=== PATIENT | female | born 1955 | race Native Hawaiian/Other Pacific Islander ===

== ENCOUNTER 2025-04-16 20:06 | Emergency (ER) | payer MEDICARE, OTHER ==
[2025-04-16] MEDS ORDERED: Dexamethasone 10 MG/ML VIAL ONE (22:41)
[2025-04-16 23:08] LABS: #Basophils 0.09 10x3/uL (0.0-0.2); #Eosinophils 1.51 10x3/uL (0.0-0.7); #Monocytes 0.54 10x3/uL (0.11-0.59); #Neutrophils 6.06 10x3/uL (1.40-6.50); %Basophils 0.9 % (0.0-1.0); %Eosinophils 14.8 % (0.0-10.0); %Lymphocytes 19.2 % (21.0-51.0); %Monocytes 5.3 % (0.0-10.0); %Neutrophils 59.5 % (42.0-75.0); Hematocrit 41.5 % (36.0-47.0); Hemoglobin 13.5 g/dL (12.0-16.0); Mean Corpuscular Hemoglobin 29.5 pg (27.0-31.0); Mean Corpuscular Volume 90.6 fL (78.0-98.0); Platelet Count 212 10x3/uL (130-400); Red Blood Cell (RBC) Count 4.58 mill/uL (4.20-5.40); White Blood Cell (WBC) Count 10.18 10x3/uL (4.8-10.8)
[2025-04-16 23:46] LABS: ALT (SGPT) 9 U/L (Less than 34); AST (SGOT) 26 U/L (11-34); Albumin 4.0 g/dL (3.1-4.5); Alkaline Phosphatase 83 U/L (40-110); Anion Gap 18 mmol/L (10-20); BUN (Urea Nitrogen) 28 mg/dL (9.8-20.1); Bilirubin, Total 0.5 mg/dL (0.3-1.2); Calc. Creatinine Clearance 0 mL/min (70-130); Calcium 9.3 mg/dL (7.8-10.44); Carbon Dioxide 18 mmol/L (23-31); Chloride 109 mmol/L (98-107); Globulin 4.1 g/dL (2.4-3.5); Glucose 94 mg/dL (80-115); Potassium 4.6 mmol/L (3.5-5.1); Sodium 140 mmol/L (136-145)
== END 2025-04-17 01:46 | disposition home or self-care (01) ==
LOC: ERS 20:06
DX: J44.1 Chronic obstructive pulmonary disease with (acute) exacerbation (principal); I10 Essential (primary) hypertension; Z79.899 Other long term (current) drug therapy
CPT/HCPCS: 71045; 80053; 83880; 84484; 85025; 87081; 87426; 87430; 93005; 96374; 99285; J1100; J7620